=== PATIENT | female | born 1990 | race Caucasian/White ===

== ENCOUNTER 2018-06-24 08:04 | Outpatient (CLI) | payer OTHER ==
--- NOTE | 2018-06-24 08:56 | ULT ---
RIGHT BREAST ULTRASOUND: HISTORY: A 27-year-old female with palpable mass of the 6 o'clock position of the right breast. The patient h as felt this mass for approximately 1 month and it has remained stable. TECHNIQUE: Multiplanar, castillo scale, and color Doppler images were obtained in a targeted ultrasound of the right breast at the 6 o'clock position. FINDINGS: There is a well-circumscribed hypoechoic mass in the 6 o'clock position approximately 2 cm from the n ipple. This measures 1.4 cm in greatest dimension and demonstrates increased through transmission wi thout shadowing. 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 IMPRESSION: BIRADS category 2 - benign findings. Annual screening mammography is recommended at the age of 40. The patient was told to continue with self breast exams to ensure that the mass remains stable. Shou ld the mass get larger, the patient was instructed to come back for further evaluation. POS: [facility]
== END 2018-06-24 08:05 | disposition home or self-care (01) ==
LOC: BICULT 08:04
PROVIDERS: ATTEND Family Medicine
DX: N63.14 Unspecified lump in the right breast, lower inner quadrant (principal)

== ENCOUNTER 2019-10-02 09:38 | Outpatient (CLI) | payer OTHER ==
--- NOTE | 2019-10-02 10:20 | ULT ---
US Breast Limited Rt HISTORY: Palpable mass at the 11:00 position of the right breast FINDINGS: Sonographic evaluation of the region of palpable concern at the 11:00 position of the right breast de monstrates a 2.9 x 2.2 x 1.7 cm cyst. IMPRESSION: BI-RADS Category 2-benign findings. Return to age-appropriate screening based on risk fac tors.
== END 2019-10-02 09:39 | disposition home or self-care (01) ==
LOC: BICULT 09:38
PROVIDERS: ATTEND Family Medicine
DX: N63.10 Unspecified lump in the right breast, unspecified quadrant (principal)